=== PATIENT | male | born 1955 | race Caucasian/White ===

== ENCOUNTER → 2021-09-07 12:33 | Outpatient (BNVA) | payer MEDICARE, SELFPAY | PROVIDERS: PCP Internal Medicine; Visit Provider Internal Medicine | DX: I10 Essential (primary) hypertension (principal); R60.0 Localized edema | CPT/HCPCS: 93005 ==

== ENCOUNTER → 2021-10-14 08:36 | Outpatient (REF) | payer MEDICARE, SELFPAY ==
--- NOTE | 2021-10-14 08:40 | CA_ITS ---
Transthoracic Echocardiogram Patient (Last, First, Middle): Silvano Ascencio, Gender: Male Date of : 1955 Age: 66 Procedure Date: 10/14/2021 Procedure Type: Transthoracic Echocardiogram Location: OP Height: 180.34 cm Weight: 102.06 kg BSA: 2.22 m2 Heart Rate: bpm BP: 120 / 72 mmHg Front End Application Developer: AVELINO Referring MD: Abel Dowd MD Symptoms: R60.0 - Localized edema Study Quality: Fair ECG Rhythm: Sinus Conclusions: - The left ventricular systolic function is normal. The calculated ejection fraction is 62% by biplane method. - No obvious valvular pathology seen on this study. Findings Left Ventricle Normal left ventricular cavity size. There is mildly increased left ventricular wall thickness. The left ventricular systolic function is normal. The calculated ejection fraction is 62% by biplane method. There is no evidence of regional wall motion abnormalities. Diastolic function is normal for age. Right Ventricle Normal right ventricular cavity size and systolic function. Atria The left atrium is mildly dilated. The right atrium is normal in size. Aortic Valve There is a normal trileaflet aortic valve. There is no aortic valve stenosis. There is no aortic valve regurgitation. Mitral Valve The mitral valve appears normal. There is no mitral valve regurgitation. There is no mitral valve stenosis. Pulmonic Valve The pulmonic valve is likely normal. Tricuspid Valve Normal tricuspid valve structure. There is mild tricuspid valve regurgitation. Top normal RVSP. Great Vessels The asc aorta is normal in size. Venous The inferior vena cava is normal in size and collapses greater than 50% with inspiration. Pericardium/Pleural There is no evidence of pericardial effusion. Prior Study Comparison No significant change compared to prior study dated: 02/01/2017. Recommendations, Care & Conclusions No obvious valvular pathology seen on this study. Measurements 2D Linear Measurements IVSd: 1.25 0.6-0.9/0.6-1.0 cm LVIDd: 5.22 3.9-5.3/4.2-5.9 cm LVIDd Index: 2.35 2.4-3.2/2.2-3.1 cm/m2 LVIDs: 3.22 2.0-3.6 cm LVPWd: 1.08 0.7-1.1 cm LA Diam: 4.30 2.7-3.8/3.0-4.0 cm LAIDs Index: 1.94 1.5-2.3 cm/m2 LV Mass: 299.66 67-162/88-224 g LV Mass Index: 134.98 43-95/49-115 g/m2 LVOT Diam: 2.30 3.0+(-)1.3 cm 2D Systolic Function EF 4C: 63.90 >55% EF 2C: 60.20 >55% EF BiP: 61.50 >55% Mitral Valve MV Pk E: 0.66 MV PK A: 0.90 MV Decel Time: 253.00 E/A: 0.70 E'Lateral: 7.29 E'Medial: 4.24 E/E' Med: 15.70 E/E' Lat: 9.10 PHT: 74.00 MVA PHT: 2.97 Decel [place]: 2.63 Aortic Valve AoV Pk [place]: 1.41 AoV Mn [place]: 1.01 AoV VTI: 0.35 AoV Pk Grad: 8.00 Aov Mn Grad: 5.00 ROSS Cont.VTI: 2.79 LVOT LVOT Pk [place]: 1.02 LVOT Mn [place]: 0.70 LVOT VTI: 0.24 LVOT Pk Grad: 4.00 LVOT Mn Grad: 2.00 LVOT Diam: 2.30 LVOT Area: 4.15 Diastolic Function MV Pk E: 0.66 MV Pk A: 0.90 E/A: 0.70 E'Medial: 4.24 E/E' Med: 15.70 E' Laterial: 7.29 E/E' Lat: 9.10 Right Ventricle TAPSE (mm): 20.30 TVS' [place]: 12.60 Tricuspid Valve TR Pk [place]: 2.82 TR Pk Grad: 32.00 RA Press: 3.00 RVSP: 35.00 Great Vessels Aorta Sinus of Valsalva: 3.31 2.0-3.[address] [place]: 2.66 1.7-3.4 cm Ao Asc: 3.10 2.1-3.4 cm Ao Arch: 3.00 Updated in Other Vendor System with Status of Final Abel Dowd MD electronically signed on 10/15/2021 3:02:41 PM with status of Final
== END ==
LOC: HO.CARD 08:36
PROVIDERS: PCP Internal Medicine; Visit Provider Internal Medicine
DX: R60.0 Localized edema (principal)
CPT/HCPCS: 93306

== ENCOUNTER → 2021-11-11 09:50 | Outpatient (BNVA) | payer MEDICARE, SELFPAY | PROVIDERS: PCP Internal Medicine; Referring Provider Internal Medicine; Visit Provider Internal Medicine | DX: R60.0 Localized edema (principal); I10 Essential (primary) hypertension; G47.33 Obstructive sleep apnea (adult) (pediatric) | CPT/HCPCS: 99212 ==

== ENCOUNTER → 2021-11-26 09:05 | Outpatient (BNVA) | payer MEDICARE, SELFPAY | PROVIDERS: PCP Internal Medicine; Visit Provider Nurse Practitioner Family | DX: G47.33 Obstructive sleep apnea (adult) (pediatric) (principal); R06.83 Snoring; Z99.89 Dependence on other enabling machines and devices | CPT/HCPCS: 99202 ==

== ENCOUNTER → 2021-12-14 10:02 | Outpatient (REF) | payer MEDICARE, SELFPAY | LOC: HO.SL 10:02 | PROVIDERS: PCP Internal Medicine; Visit Provider Nurse Practitioner Family | DX: G47.33 Obstructive sleep apnea (adult) (pediatric) (principal); R06.83 Snoring | CPT/HCPCS: 95806 ==

== ENCOUNTER → 2022-05-27 08:55 | Outpatient (BNVA) | payer MEDICARE, SELFPAY | PROVIDERS: PCP Internal Medicine; Visit Provider Nurse Practitioner Family | DX: G47.33 Obstructive sleep apnea (adult) (pediatric) (principal) | CPT/HCPCS: 99212 ==

== ENCOUNTER → 2022-08-26 08:54 | Outpatient (BNVA) | payer MEDICARE, SELFPAY | PROVIDERS: PCP Internal Medicine; Visit Provider Nurse Practitioner Family | DX: G47.33 Obstructive sleep apnea (adult) (pediatric) (principal) | CPT/HCPCS: 99212 ==

== ENCOUNTER → 2022-11-16 13:19 | Outpatient (BNVA) | payer MEDICARE, SELFPAY | PROVIDERS: PCP Internal Medicine; Referring Provider Internal Medicine; Visit Provider Internal Medicine | DX: I10 Essential (primary) hypertension (principal); R60.0 Localized edema; G47.33 Obstructive sleep apnea (adult) (pediatric); Z99.89 Dependence on other enabling machines and devices | CPT/HCPCS: 93005; 99212 ==

== ENCOUNTER → 2022-12-09 08:43 | Outpatient (REF) | payer MEDICARE, SELFPAY ==
--- NOTE | ~2022-12-09 | NM_ITS ---
Exercise Myocardial perfusion study Indication: Atherosclerotic cardiovascular disease to evaluate for myocardial ischemia Technique: The patient was brought in for an exercise perfusion study on 12/09/2022. Patient performed exercise as per Gwyn protocol and was injected 35 mCi of sestamibi was given intravenously one target HR was achieved. Images were obtained using the SPECT gamma camera interlaced with the gating device. Images were obtained in supine position. Resting perfusion study was performed on 12/12/2022. Patient was administered 35 mCi of sestamibi intravenously at rest. Images were then obtained in supine position. Images obtained with and without CT attenuation. Total DLP 123 mGy-cm. Images were processed with the software and compared side to side in short axis, horizontal long axis and vertical long axis views. Findings: The stress perfusion study showed non attenuated images show mildly reduced uptake in the apex and minimal thinning of the inferior wall of the LV myocardium. Remainder of the LV myocardium is normally perfused. Attenuated corrected images show mildly reduced uptake in the apex of the LV myocardium... The gated study shows low normal LV systolic function with calculated LVEF of 50%. LV cavity is normal in in size. The gated study shows normal systolic wall thickening and contraction of all segments. There is no transient ischemic dilation. Resting study shows no change in perfusion pattern. Gating at rest reveals normal systolic wall motion with ejection fraction at 42%. The findings are consistent with no reversible defect suggestive of ischemia. Normal myocardial perfusion. NM/NM cardiolite stress test Impression: 1. Normal myocardial perfusion 2. Gated LVEF is 50%, although visually appears to be higher 3. Transient ischemic dilatation not present Stress EKG is negative for ischemia at workload achieved
--- NOTE | 2022-12-09 08:45 | CA_ITS ---
Acquisition Time: 2022-12-09 09:26:31 Total Exercise Time: 00:05:15 Test Indications: Medications: Protocol: PAWAN Max HR: 136 BPM 88% of Pred: 153 BPM Max BP: 172/074 mmHG Max Work Load: 7.0 METS Exercise stress test with exercise 5 min 15 sec of Pawan protocol, achieving 88% MPHR, 7 METs, with back discomfort and moderate sob with need to stop, with no chest discomfort, with isolated PVCs, with normotensive response to exercise, without EKG changes meeting criteria for ischemia. Breathing quickly improved with rest. Nuclear images pending. Test reviewed with Dr Dowd Referred By: Abel Dowd Overread By: JOANIE SOARES
== END ==
LOC: HO.CARD 08:43
PROVIDERS: PCP Internal Medicine; Visit Provider Internal Medicine
DX: I25.10 Atherosclerotic heart disease of native coronary artery without angina pectoris (principal)
CPT/HCPCS: 78452; 93017; A9500

== ENCOUNTER 2023-05-05 09:00 | Outpatient (AMB) | payer MEDICARE, SELFPAY ==
--- NOTE | 2023-05-05 09:08 | A.OFFVIS_ITS ---
Intake Vital Signs 05/05/23 09:09 Height 5 ft 11 in Weight 241 lb BMI 33.6 BP 124/82 Blood Pressure Location Rt brachial Position Sitting Intake Visit Reasons: 6mnts f/u for sleep-Confirmed Intake Note: Patient presents for 6 months follow up sleep. Patient states I cant breath with that machine on. Allergies No Known Allergies Allergy (Verified 05/05/23 09:14) HPI HPI Comments History of Present Illness Details 67 y/o male patient presents for follow up of OTILIO on CPAP. Pt reports that he could not sleep well with the mask, wants to try nasal pillow. He tosses and turns, and feels he does not breathe well with the mask. He also has difficulty falling asleep. He tried his 's trazodone 50 mg and it helped to fall asleep. He has not tried melatonin yet. The CPAP compliance and therapy response (03/27/23-04/25/23) reviewed. He is on APAP [id number]. The usage days 57% and the average usage hours 1 hrs 40 min. The max pressure was 9 and the AHI was 1/hr. He walks his dog daily, and does exercise more. Pt can have his ankle swollen, and uses compression stocking sometimes. [facility] Medical History Essential hypertension Surgical History History of cervical spinal surgery History of tonsillectomy Hx of cholecystectomy Family History Father Cancer Mother HTN (hypertension) Social History Alcohol intake: former Patient Tobacco Use Status: Former Tobacco user Review of Systems Const All systems reviewed & are unremarkable except as noted in HPI and below ENT Reports Normal hearing present Neuro Reports Normal hearing present Physical Exam Vital Signs: Last Vital Signs BP 124/82 05/05/23 09:09 BMI result Body Mass Index 33.6 Const General: cooperative and healthy appearing Nutritional Appearance: obese Orientation/consciousness: patient oriented x3 Limitations: no limitations Resp Effort & Inspection: normal respiratory effort and able to speak in complete sentences Neuro General: patient oriented x3 and gait normal Cranial nerves: Yes Normal facial strength present, Yes Midline tongue present, Yes Symmetric palate elevation present, Yes Normal hearing present, Yes Ability to bilaterally rotate head present and Yes Ability to bilaterally elevate shoulders present Cognition (Neuro): normal cognition Psych Appearance: grossly normal Mental Status: mental status grossly normal Speech and movement: Normal speech and movement present Assessment & Plan Assessment & Plan (1) OTILIO (obstructive sleep apnea): Code(s): G47.33 - Obstructive sleep apnea (adult) (pediatric) Plan Continue to use APAP 4-10 cmH2O nightly. New CPAP mask prescription given to patient to try nasal pillow. Stressed compliance, use nightly and more than 4 hrs. Advised patient to try melatonin 3 mg with magnesium 400 mg qHS to promote sleep. Medications: New magnesium oxide 400 mg PO BEDTIME 30 days 30 tabs 3RF melatonin 3 mg PO BEDTIME 30 days 30 caps 3RF sleep Coding Level of Care Code Est Pt Level 4 (05935) Diagnoses OTILIO (obstructive sleep apnea) G47.33
[2023-05-05 09:09] VITALS: BP 124/82; BMI 33.6
== END 2023-05-05 09:42 | disposition home or self-care (01) ==
PROVIDERS: Visit Provider Nurse Practitioner Family
DX: G47.33 Obstructive sleep apnea (adult) (pediatric) (principal)
CPT/HCPCS: 99214

== ENCOUNTER → 2023-05-05 09:00 | Outpatient (BNVA) | payer MEDICARE, SELFPAY | PROVIDERS: Visit Provider Nurse Practitioner Family | DX: G47.33 Obstructive sleep apnea (adult) (pediatric) (principal) | CPT/HCPCS: 99212 ==

== ENCOUNTER 2023-07-27 10:27 | Outpatient (AMB) | payer MEDICARE, SELFPAY ==
--- NOTE | 2023-07-27 10:41 | A.OFFVIS_ITS ---
Intake Vital Signs 07/27/23 10:45 Height 5 ft 11 in Weight 231 lb 2 oz BMI 32.2 BP 122/74 Blood Pressure Location Lt brachial Position Sitting Pulse 62 Pulse Source Pulse Oximeter Pulse Oximetry (%) 92 Oxygen Delivery Method Room Air Intake Visit Reasons: 2 mo f/u - Sleep - CONF Intake Note: Patient presents for 2 month f/u. Allergies No Known Allergies Allergy (Verified 07/27/23 10:45) HPI HPI Comments History of Present Illness Details 68 y/o male patient presents for follow up of OTILIO on CPAP. Pt reports that he had a new CPAP mask, and sleeps well with it. His sleep also improved with melatonin and magnesium 4-7 hrs. The CPAP compliance and therapy response (03/27/23-04/25/23) reviewed. He is on APAP [id number]. The usage days 57% and the average usage hours 1 hrs 40 min. The max pressure was 9 and the AHI was 1/hr. He changed new SD card but need to send to [place]. He walks his dog daily, and does exercise more. He lost 10 lb, stopped eating night time snack and ankle swollen has resolved. [facility], [facility] Medical History Essential hypertension Surgical History History of cervical spinal surgery History of tonsillectomy Hx of cholecystectomy Family History Father Cancer Mother HTN (hypertension) Social History Alcohol intake: former Patient Tobacco Use Status: Former Tobacco user Review of Systems Const All systems reviewed & are unremarkable except as noted in HPI and below ENT Reports Normal hearing present Neuro Reports Normal hearing present Physical Exam Vital Signs: Last Vital Signs Pulse 62 07/27/23 10:45 BP 122/74 07/27/23 10:45 Pulse Ox 92 07/27/23 10:45 Oxygen Delivery Method Room Air 07/27/23 10:45 BMI result Body Mass Index 32.2 Const General: cooperative and healthy appearing Nutritional Appearance: obese Orientation/consciousness: patient oriented x3 Limitations: no limitations Resp Effort & Inspection: normal respiratory effort and able to speak in complete sentences Neuro General: patient oriented x3 and gait normal Cranial nerves: Yes Normal facial strength present, Yes Midline tongue present, Yes Symmetric palate elevation present, Yes Normal hearing present, Yes Ability to bilaterally rotate head present and Yes Ability to bilaterally elevate shoulders present Cognition (Neuro): normal cognition Psych Appearance: grossly normal Mental Status: mental status grossly normal Speech and movement: Normal speech and movement present Assessment & Plan Assessment & Plan (1) OTILIO (obstructive sleep apnea): Code(s): G47.33 - Obstructive sleep apnea (adult) (pediatric) Plan Continue to use APAP 4-10 cmH2O nightly. Stressed compliance, use nightly and more than 4 hrs. Advised patient to change SD card for compliance. Advised patient to continue to take melatonin 3 mg with magnesium 400 mg qHS for sleep. Coding Level of Care Code Est Pt Level 3 (22980) Diagnoses OTILIO (obstructive sleep apnea) G47.33
[2023-07-27 10:45] VITALS: BP 122/74; PULSE 62; O2SAT 92; BMI 32.2
== END 2023-07-27 11:02 | disposition home or self-care (01) ==
PROVIDERS: PCP Internal Medicine; Visit Provider Nurse Practitioner Family
DX: G47.33 Obstructive sleep apnea (adult) (pediatric) (principal)
CPT/HCPCS: 99213

== ENCOUNTER → 2023-07-27 10:27 | Outpatient (BNVA) | payer MEDICARE, SELFPAY | PROVIDERS: PCP Internal Medicine; Visit Provider Nurse Practitioner Family | DX: G47.33 Obstructive sleep apnea (adult) (pediatric) (principal) | CPT/HCPCS: 99212 ==

== ENCOUNTER 2023-11-16 11:43 | Outpatient (AMB) | payer MEDICARE, SELFPAY ==
--- NOTE | 2023-11-16 12:31 | A.OFFVIS_ITS ---
Vital Signs 11/16/23 12:32 Height 5 ft 11 in Weight 231 lb 7.766 oz BMI 32.3 BP 120/70 Blood Pressure Location Lt brachial Position Sitting Pulse 59 Intake Visit Reasons: 1 yr f/up Intake Note: 1 year follow-up with ekg feeling good Cushion Former Required: No Allergies No Known Allergies Allergy (Verified 07/27/23 10:45) Medication List - Last Reconciled 11/16/23 by Abel Dowd MD amlodipine 10 mg PO DAILY aspirin 81 mg PO DAILY atorvastatin 40 mg PO DAILY levothyroxine 137 mcg PO DAILY losartan 100 mg PO DAILY magnesium oxide 400 mg PO BEDTIME 90 days melatonin 3 mg PO BEDTIME 90 days metoprolol tartrate 50 mg PO BID omeprazole 20 mg PO DAILY HPI Comments Details: Silvano returns for follow-up. Multiple cardiovascular risk factors including hypertension, hyperlipidemia, obstructive sleep apnea. In the past, he was having some leg swelling but he was not using CPAP then. Then after he started using the CPAP, leg swelling disappeared completely. For the most part, he is doing fine. He has had some mild chronic exertional shortness of breath that is unchanged. No angina whatsoever. [facility] Medical History Essential hypertension Surgical History History of cervical spinal surgery History of tonsillectomy Hx of cholecystectomy Family History Father Cancer Mother HTN (hypertension) Social History Alcohol intake: former Patient Tobacco Use Status: Former Tobacco user Review of Systems Const Denies chills, Denies fatigue, Denies fever(s), Denies frequent falls, Denies weakness, Denies weight gain and Denies weight loss ENT Denies dizziness Card Denies chest pain, Denies leg edema, Denies lightheadedness, Denies palpitations, Denies dyspnea, Denies dyspnea on exertion, Denies orthopnea and Denies other (loss of consciousness) Resp Denies cough, Denies dyspnea and Denies dyspnea on exertion GI Denies hematochezia and Denies change in stool character Musc Denies abnormal gait, Denies muscle weakness, Denies numbness, Denies radiating pain into limb and Denies tingling Neuro Denies abnormal gait, Denies dizziness, Denies frequent falls, Denies numbness, Denies tingling and Denies weakness Endo Denies fatigue and Denies palpitations Physical Exam Vital Signs: Last Vital Signs Pulse 59 11/16/23 12:32 BP 120/70 11/16/23 12:32 BMI result Body Mass Index 32.3 Const General: comfortable and no acute distress Orientation/consciousness: patient oriented x3 HEENT Other: Unremarkable Head: Yes normal to inspection Neck Neck: Yes normal visual inspection Chest Chest palpation & inspection: normal inspection of the chest Resp Auscultation: clear to auscultation bilaterally Cardio Palpation: normal PMI Heart sounds: S1 normal heart sound present, S2 normal heart sound present, no gallops, no murmurs and no rubs GI Palpation (GI): Soft to palpation Back/Spine/Pelvis Other: unremarkable Skin General skin exam: no rashes or lesions noted Neuro General: patient oriented x3 Extrem General: Yes normal to inspection Psych Mental Status: mental status grossly normal Office Procedures EKG Details: EKG with sinus rhythm at 59/Min; no significant ST-T changes and otherwise [place]remarkable[place] [id number], Complete Assessment & Plan Assessment & Plan (1) Leg edema: Code(s): R60.0 - Localized edema Category: Medical Plan: Seems mostly resolved. Probably all from some combination of venous insufficiency and OTILIO. Unremarkable echocardiogram. (2) Essential hypertension: Code(s): I10 - Essential (primary) hypertension Category: Medical Plan: Stable. Listed to be on metoprolol, losartan, amlodipine. (3) OTILIO (obstructive sleep apnea): Code(s): G47.33 - Obstructive sleep apnea (adult) (pediatric) Category: Medical Plan: Continue CPAP. Coding Level of Care Code Est Pt Level 3 (90474) Diagnoses Leg edema R60.0 Essential hypertension I10 OTILIO (obstructive sleep apnea) G47.33 CPT Codes EKG - CPT: 17632-[id number], Complete ([id number])
[2023-11-16 12:32] VITALS: BP 120/70; PULSE 59; BMI 32.3
== END 2023-11-16 12:59 | disposition home or self-care (01) ==
PROVIDERS: Visit Provider Internal Medicine
DX: R60.0 Localized edema (principal); I10 Essential (primary) hypertension; G47.33 Obstructive sleep apnea (adult) (pediatric)
CPT/HCPCS: 93010; 99213

== ENCOUNTER → 2023-11-16 11:43 | Outpatient (BNVA) | payer MEDICARE, SELFPAY | PROVIDERS: Visit Provider Internal Medicine | DX: R60.0 Localized edema (principal); I10 Essential (primary) hypertension; G47.33 Obstructive sleep apnea (adult) (pediatric); Z99.89 Dependence on other enabling machines and devices | CPT/HCPCS: 93005; 99212 ==

== ENCOUNTER 2023-12-26 13:41 | Outpatient (AMB) | payer MEDICARE, SELFPAY ==
[2023-12-26 14:02] VITALS: BMI 32.0
--- NOTE | 2023-12-26 14:02 | A.OFFVIS_ITS ---
VS Expanded 12/26/23 14:02 01/03/24 12:53 Height 5 ft 11 in 5 ft 11 in Weight 229 lb 11.547 oz 230 lb BMI 32.0 32.1 Intake Visit Reasons: Pre-diabetic/CONFIRMED Allergies No Known Allergies Allergy (Verified 07/27/23 10:45) Nutrition Presentation Details: Pt presents for MNT for Pre DM. Pt was referred by Ayanna Billingsley NP food frequency fruits: 0-1/d vex/wk fish:no including starches > 30 /d beverages: water, low sugar beverages physical activity: daily life activities BS Monitoring Most Recent Diabetes Results: No Data to Display [id number]-Yrtxagm-Pk.Amanda Equation Height: 5 ft 11 in Weight: 230 lb Resting Metabolic Rate: 1839.78 Calculated Activity Level: Mild Activity Calories Needed to Maintain Weight: 2529.70 Diagnosis Nutrition problem #1: food nutri know defi As related to (etiology) #1: diagnosis As evidenced by (sign/symptom) #1: knowledge deficit of diet PFSH Medical History Essential hypertension Surgical History History of cervical spinal surgery History of tonsillectomy Hx of cholecystectomy Family History Father Cancer Mother HTN (hypertension) Social History Alcohol intake: former Patient Tobacco Use Status: Former Tobacco user Assessment & Plan Assessment & Plan (1) Pre-diabetes: Code(s): R73.03 - Prediabetes Category: Medical Plan: Wt: 104 Kg ( 12/2023 ) Est kcal needs as per MSJ: 2500 (40% carb, 30% protein/fat) Est fluid needs as per 25-30 ml/d: 3100 Est prot per day as per 1 g/kg bw: 104 Recommend fiber intake : 8-10 g per day and gradually increase to 25-28 g per day for women and 35-38 g for men or as tolerated Recommend sodium intake per day : less than 2000 mg Educated patient on: ( R = reviewed V = verbalizes understanding N/R = needs review N/A = not applicable * Food sources of carbohydrate, adequate serving sizes and its role in various health conditions: R * Differences between complex carbohydrates a simple carbohydrates, role of fiber in diet: R V N/R * Lean protein sources of foods: R * Differences between types of fats and role in diet (mono on saturated fat fatty acids, saturated fatty acids, trans fats): R V N/R * Food sources of sodium in salt and healthy modifications for heart health in kidney health: R V R/V * Vitamins and minerals: R V N/R * Healthy plate method concept: R * Physical activity: Benefits a precaution: R V N/R * Hypoglycemia protocol (rule of 15): R V N/R * Dietary prevention of Hyperglycemia: R Patient Instructions: Work on following healthy plate method Reduce total carb at meal to 75-80 g Have water with meals , reducing on sugary beverages practice mindful eating Coding Level of Care Code Nutr Indiv Intake (76609) Diagnoses Pre-diabetes R73.03 Time Spent (min) 30
[2024-01-03 12:53] VITALS: BMI 32.1
== END 2023-12-26 14:44 | disposition home or self-care (01) ==
PROVIDERS: PCP Internal Medicine; Visit Provider Dietitian, Registered
DX: R73.03 Prediabetes (principal)

== ENCOUNTER → 2023-12-26 13:41 | Outpatient (BNVA) | payer MEDICARE, SELFPAY | PROVIDERS: PCP Internal Medicine; Visit Provider Dietitian, Registered | DX: R73.03 Prediabetes (principal); Z71.3 Dietary counseling and surveillance | CPT/HCPCS: 97802 ==

== ENCOUNTER 2024-02-14 14:00 | Outpatient (AMB) | payer MEDICARE, SELFPAY ==
--- NOTE | 2024-02-14 14:33 | A.OFFVIS_ITS ---
VS Expanded 02/14/24 14:34 Height 5 ft 11 in Weight 231 lb 14.821 oz BMI 32.3 Intake Visit Reasons: Pre Diabetic/CONFIRMED Allergies No Known Allergies Allergy (Verified 07/27/23 10:45) Nutrition Presentation Details: Pt presents for MNT f/u for pre dm Pt reports working on meal plan BS Monitoring Most Recent Diabetes Results: No Data to Display PFSH Medical History Essential hypertension Surgical History History of cervical spinal surgery History of tonsillectomy Hx of cholecystectomy Family History Father Cancer Mother HTN (hypertension) Social History Alcohol intake: former Patient Tobacco Use Status: Former Tobacco user Assessment & Plan Assessment & Plan (1) Pre-diabetes: Code(s): R73.03 - Prediabetes Category: Medical Plan: Wt: 104 Kg ( 12/2023 ) Est kcal needs as per MSJ: 2500 (40% carb, 30% protein/fat) Est fluid needs as per 25-30 ml/d: 3100 Est prot per day as per 1 g/kg bw: 104 Recommend fiber intake : 8-10 g per day and gradually increase to 25-28 g per day for women and 35-38 g for men or as tolerated Recommend sodium intake per day : less than 2000 mg Educated patient on: ( R = reviewed V = verbalizes understanding N/R = needs review N/A = not applicable * Food sources of carbohydrate, adequate serving sizes and its role in various health conditions: R * Differences between complex carbohydrates a simple carbohydrates, role of fiber in diet: R V N/R * Lean protein sources of foods: R * Differences between types of fats and role in diet (mono on saturated fat fa tty acids, saturated fatty acids, trans fats): R V N/R * Food sources of sodium in salt and healthy modifications for heart health in kidney health: R V R/V * Vitamins and minerals: R V N/R * Healthy plate method concept: R * Physical activity: Benefits a precaution: R V N/R * Hypoglycemia protocol (rule of 15): R V N/R * Dietary prevention of Hyperglycemia: R Patient Instructions: Continue working on reducing sugars (pastries/cookies, juices) Coding Level of Care Code Nutr Indiv Subseq (53961) Diagnoses Pre-diabetes R73.03 Time Spent (min) 20
[2024-02-14 14:34] VITALS: BMI 32.3
== END 2024-02-14 15:08 | disposition home or self-care (01) ==
PROVIDERS: PCP Internal Medicine; Visit Provider Dietitian, Registered
DX: R73.03 Prediabetes (principal)

== ENCOUNTER → 2024-02-14 14:00 | Outpatient (BNVA) | payer MEDICARE, SELFPAY | PROVIDERS: PCP Internal Medicine; Visit Provider Dietitian, Registered | DX: R73.03 Prediabetes (principal); Z71.3 Dietary counseling and surveillance | CPT/HCPCS: 97803 ==

== ENCOUNTER 2024-04-23 13:21 | Outpatient (AMB) | payer MEDICARE, SELFPAY ==
--- NOTE | 2024-04-23 13:48 | MHC.OFFVIS ---
Vital Signs 04/23/24 13:57 Height 5 ft 11 in Weight 233 lb BMI 32.5 Intake Visit Reasons: 6m follow up Sleep Intake Note: Patient presents for follow up Allergies No Known Allergies Allergy (Verified 04/23/24 13:57) HPI Comments Details: 69 year male with Essential HTN, OTILIO presents for a follow up He has a history of sleep apnea, managed with CPAP, he is a former smoker. He was not compliant due to mask leaks, and adjustments, now he is using the nose pillows as of November 2023. Goes to bed at midnight wakes at 830am feels refreshed. Denies, brain fog, gasping for air, snoring, vision changes, parasomnia behavior, restless legs, falls and numbness and tingling in legs. History of essential HTN controlled by 3 medications CPAP use was not at optimal therapy d/t surgery of RGil frausto, was sleeping upright in his chair. He needs pressure adjustments, cold air blows at night onto his face harsh, dries out his skin. He follows up with with [facility] - disk needs to be edited for pressures to read between 6cmH20 to 9cmH20, uses distilled water, and changes out supplies as needed. Has short term memory issues, brain fog. He feels overwhelmed with the election, political issues, stressed and anxious, uses Melatonin PRN. Wears compression stockings intermittently when notices edema. 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 He is normally very cheerful, in good mood with his grandchildren and puppy, walks a mile daily in the morning and evenings. Uses Vibratory yanet techniques for relaxation. Mediterranean Diet and Dash Diet Compression Stockings CPAP use nightly Vitamin D Anxiolytic PFSH Medical History Essential hypertension Surgical History History of cervical spinal surgery History of tonsillectomy Hx of cholecystectomy Family History Father Cancer Mother HTN (hypertension) Social History Alcohol intake: former Patient Tobacco Use Status: Former Tobacco user Review of Systems Const Reports as per HPI and Reports snoring Resp Reports snoring Physical Exam Vital Signs: BMI result Body Mass Index 32.5 Const General: cooperative, comfortable and no acute distress Nutritional Appearance: average body habitus Orientation/consciousness: patient oriented x3 HEENT Face and sinus: Yes face symmetric Mouth: tongue normal Eyes Pupils: Equal, round and reactive pupils present, Pupils normal by confrontation and Pupil accommodation reflex normal Neck Neck: Yes normal visual inspection, Yes full ROM and Yes supple Resp Effort & Inspection: normal respiratory effort and able to speak in complete sentences Neuro General: patient oriented x3 Cranial nerves: Yes CN's II-XII intact bilaterally, Yes Equal, round and reactive pupils present, Yes Midline tongue present, Yes Ability to bilaterally rotate head present and Yes Ability to bilaterally elevate shoulders present Gait exam (Neuro): Normal gait present Motor exam (neuro): 5/5 motor strength present throughout Deep tendon reflexes (DTR's): Right triceps reflex intensity grade: 2+, Left triceps reflex intensity grade: 2+, Rt Biceps (C5, C6): 2+, Left biceps reflex intensity grade: 2+, Right brachioradialis reflex intensity grade: 2+, Left brachioradialis reflex intensity grade: 2+, Right patellar reflex intensity grade: 2+, Left patellar reflex intensity grade: 2+, Right ankle reflex intensity grade: 2+ and Left ankle reflex intensity grade: 2+ Coordination: kqzjae-he-lcas test normal, rapid alternating movements of the distal upper extremity normal and rapid alternating movements of the distal lower extremity normal Romberg Test: Negative Psych Appearance: grossly normal Speech and movement: Pressured speech present Affect: Anxious affect present Attitude: cooperative Thought content: Normal thought content present Insight: Good insight present (Psych) Judgement: Good judgement present (Psych) Assessment & Plan Assessment & Plan (1) OTILIO (obstructive sleep apnea): Code(s): G47.33 - Obstructive sleep apnea (adult) (pediatric) Category: Medical Plan: Obstructive Sleep Apnea continue the use of CPAP as it has good clincial effects with regards to HTN. Patient Education: Will adjust pressures to 6cmH20 to 9cmH20 for better outcomes. Randomized Trials found that consistent compliance of PAP reduces systemic blood pressure, regardless if they are hypertensive at baseline or if they have resistant Hypertension. Medications: New escitalopram oxalate 5 mg PO DAILY 30 tabs 6RF Scribe Plan - Not visible on output: SSRI Escitalopram Low Dose therapy for Stress induced panic attacks, depression and overwhelming thoughts. Continue to use escitalopram PO 5mg dose daily for 6-12 weeks to see good clinical outcomes, do not stop therapy as SSRIs usually take 6-12 weeks for effectiveness of use. Call the clinic if you have any questions or concerns. Coding Level of Care Code Est Pt Level 4 (20270) Complex EM visit Add On G2211 Diagnoses OTILIO (obstructive sleep apnea) G47.33
[2024-04-23 13:57] VITALS: BMI 32.5
== END 2024-04-23 14:46 | disposition home or self-care (01) ==
LOC: HO.HSMS 13:22
PROVIDERS: PCP Internal Medicine; Visit Provider Psychiatry & Neurology Neurology
DX: G47.33 Obstructive sleep apnea (adult) (pediatric) (principal)
CPT/HCPCS: 99214; G2211

== ENCOUNTER → 2024-04-23 13:21 | Outpatient (BNVA) | payer MEDICARE, SELFPAY | PROVIDERS: PCP Internal Medicine; Visit Provider Psychiatry & Neurology Neurology | DX: G47.33 Obstructive sleep apnea (adult) (pediatric) (principal); Z99.89 Dependence on other enabling machines and devices | CPT/HCPCS: 99212 ==

== ENCOUNTER 2024-05-08 13:48 | Outpatient (AMB) | payer MEDICARE, SELFPAY ==
--- NOTE | 2024-05-08 13:59 | A.OFFVIS_ITS ---
VS Expanded 05/08/24 14:02 Height 5 ft 11 in Weight 229 lb 11.547 oz BMI 32.0 Intake Visit Reasons: pre dm/LVM Allergies No Known Allergies Allergy (Verified 04/23/24 13:57) Nutrition Presentation Details: Pt presents for MNT f/u for Pre DM Pt reports walking 1 hour/d no modification in diet BS Monitoring Most Recent Diabetes Results: No Data to Display PFSH Medical History Essential hypertension Surgical History History of cervical spinal surgery History of tonsillectomy Hx of cholecystectomy Family History Father Cancer Mother HTN (hypertension) Social History Alcohol intake: former Patient Tobacco Use Status: Former Tobacco user Assessment & Plan Assessment & Plan (1) Pre-diabetes: Code(s): R73.03 - Prediabetes Category: Medical Plan: Wt: 104 Kg ( 12/2023 ), 04/2024 Est kcal needs as per MSJ: 2500 (40% carb, 30% protein/fat) Est fluid needs as per 25-30 ml/d: 3100 Est prot per day as per 1 g/kg bw: 104 Recommend fiber intake : 8-10 g per day and gradually increase to 25-28 g per day for women and 35-38 g for men or as tolerated Recommend sodium intake per day : less than 2000 mg Educated patient on: ( R = reviewed V = verbalizes understanding N/R = needs review N/A = not applicable * Food sources of carbohydrate, adequate serving sizes and its role in various health conditions: R * Differences between complex carbohydrates a simple carbohydrates, role of fiber in diet: R V N/R * Lean protein sources of foods: R * Differences between types of fats and role in diet (mono on saturated fat fatty acids, saturated fatty acids, trans fats): R V N/R * Food sources of sodium in salt and healthy modifications for heart health in kidney health: R V R/V * Vitamins and minerals: R V N/R * Healthy plate method concept: R * Physical activity: Benefits a precaution: R V N/R * Hypoglycemia protocol (rule of 15): R V N/R * Dietary prevention of Hyperglycemia: R Patient Instructions: Try yogurt with fruit and sugar subsitute or cottage cheese with fruit and sugar substitute as a mid afternoon snack in place of pastries Coding Level of Care Code Nutr Indiv Subseq (27205) Diagnoses Pre-diabetes R73.03 Time Spent (min) 20
[2024-05-08 14:02] VITALS: BMI 32.0
== END 2024-05-08 15:16 | disposition home or self-care (01) ==
PROVIDERS: PCP Internal Medicine; Visit Provider Dietitian, Registered
DX: R73.03 Prediabetes (principal)

== ENCOUNTER → 2024-05-08 13:48 | Outpatient (BNVA) | payer MEDICARE, SELFPAY | PROVIDERS: PCP Internal Medicine; Visit Provider Dietitian, Registered | DX: R73.03 Prediabetes (principal); Z71.3 Dietary counseling and surveillance | CPT/HCPCS: 97803 ==